=== PATIENT | female | born 1960 | race Caucasian/White ===

== ENCOUNTER 2017-02-23 18:34 | Emergency (ER) | payer OTHER ==
[2017-02-23] MEDS ORDERED: Bacitracin Oint 1 GM U/D Packet TOP ONE (20:31)
--- NOTE | 2017-02-23 20:34 | EDM.PDOC ---
ED HPI GENERAL MEDICAL PROBLEM - General Chief Complaint: Lower Extremity Injury/Pain Stated Complaint: PT FELL DOWNSTAIRS AT WORK Time Seen by Provider: 02/23/17 20:19 Source of Information: Reports: Patient History Limitations: Reports: No Limitations - History of Present Illness INITIAL COMMENTS - FREE TEXT/NARRATIVE: HISTORY AND PHYSICAL: History of present illness: Patient is a 56-year-old female who presents to the emergency room after a fall at 5:30 onto concrete floor. She states she tripped and fell landing on her left side states her face did hit the concrete. Denies any loss of consciousness. She states she has some "soreness" to her lower extremities from the knee down bilaterally. She was able to ambulate into the room without any difficulty. Patient does not take any anticoagulants either prescribed or [id number]. Denies any blurred vision, nausea, vomiting or paresthesias. Review of systems: As per history of present illness and below otherwise all systems reviewed and negative. Past medical history: As per history of present illness and as reviewed below otherwise noncontributory. Surgical history: As per history of present illness and as reviewed below otherwise noncontributory. Social history: No reported history of drug or alcohol abuse. Family history: As per history of present illness and as reviewed below otherwise noncontributory. Physical exam: HEENT: Atraumatic, normocephalic, pupils reactive, negative for conjunctival pallor or scleral icterus, mucous membranes moist, throat clear, neck supple, nontender, trachea midline. Lungs: Clear to auscultation, breath sounds equal bilaterally, chest nontender. Heart: S1S2, regular, negative for clicks, rubs, or JVD. Abdomen: Soft, nondistended, nontender. Negative for masses or hepatosplenomegaly. Negative for costovertebral tenderness. Pelvis: Stable nontender. Genitourinary: Deferred. Rectal: Deferred. Extremities: Atraumatic, negative for cords or calf pain. Neurovascular unremarkable. Neuro: Awake, alert, oriented. Cranial nerves II through XII unremarkable. Cerebellum unremarkable. Motor and sensory unremarkable throughout. Exam nonfocal. Physical examination patient states she is only concerned about the pain on the left side of her face. She declines any x-rays of her lower extremities. She is able to ambulate and has full range of motion. I did recommend she receive a Tdap today as she does have an open superficial abrasion to the right cruz. She declines a T-dap at this time. Diagnostics: CT head Therapeutics: Wound cleansing, bacitracin Impression: Head injury without loss of consciousness Abrasion Plan: 1. Please keep the abrasions clean and dry. Monitor for signs of infection. 2. Head injury instructions have been reviewed with you. If symptoms worsen or new symptoms develop please return to the emergency room as we discussed. 3. Follow-up with your primary care provider in the next 1-2 days. Return to the ED as needed and as discussed Definitive disposition and diagnosis as appropriate pending reevaluation and review of above. Duration: Hour(s): Location: Reports: Face head & lower legs Pain Score (Numeric/FACES): 5 - Related Data Allergies Allergy/AdvReac Type Severity Reaction Status Date / Time No Known Allergies Allergy Verified 02/23/17 19:09 Home Meds: Home Meds . 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: Musculoskeletal History: Reports: None Neurological History: Reports: None Psychiatric History: Reports: None Endocrine/Metabolic History: Reports: None Hematologic History: Reports: None Immunologic History: Reports: None Oncologic (Cancer) History: Reports: None Dermatologic History: Reports: None - Infectious Disease History Infectious Disease History: Reports: None - Past Surgical History Head Surgeries/Procedures: Reports: None GI Surgical History: Reports: Appendectomy Social & Family History - Family History Family Medical History: Noncontributory - Tobacco Use Smoking Status *Q: Current Every Day Smoker Years of Tobacco use: 40 Packs/Tins Daily: 0.3 - Caffeine Use Caffeine Use: Reports: Coffee, Soda - Recreational Drug Use Recreational Drug Use: No Review of Systems - Review of Systems Review Of Systems: ROS reveals no pertinent complaints other than HPI. ED EXAM, GENERAL - Physical Exam Exam: See Below (See dictation) Course - Vital Signs Last Recorded V/S: Last Vital Signs Temp 36.4 C 02/23/17 19:09 Pulse 92 02/23/17 19:09 Resp 18 11/06/17 19:09 BP 156/72 H 02/23/17 19:09 Pulse Ox 98 02/23/17 19:09 - Orders/Labs/Meds Orders: Active Orders 24 hr Category Date Time Status Communication Order [RC] STAT Care 02/23/17 20:30 Active Head wo Cont [CT] Stat Exams 02/23/17 20:31 Taken Meds: Medications Discontinued Medications Generic Name Dose Route Start Last Admin Trade Name Nneka PRN Reason Stop Dose Admin Bacitracin 1 dose 02/23/17 20:31 02/23/17 20:39 Bacitracin Oint 1 Gm TOP 02/23/17 20:32 1 dose ONETIME ONE Administration Departure - Departure Time of Disposition: 21:54 Disposition: Home, Self-Care 01 Clinical Impression: Abrasion Head injury, acute, without loss of consciousness Qualifiers: Encounter type: initial encounter Qualified Code(s): S09.90XA - Unspecified injury of head, initial encounter - Discharge Information Referrals: PCP,None [Primary Care Provider] - Forms: ED Department Discharge Additional Instructions: My general discharge The following information is given to patients seen in the emergency department who are being discharged to home. This information is to outline your options for follow-up care. We provide all patients seen in our emergency department with a follow-up referral. The need for follow-up, as well as the timing and circumstances, are variable depending upon the specifics of your emergency department visit. If you don't have a primary care physician on staff, we will provide you with a referral. We always advise you to contact your personal physician following an emergency department visit to inform them of the circumstance of the visit and for follow-up with them and/or the need for any referrals to a consulting specialist. The emergency department will also refer you to a specialist when appropriate. This referral assures that you have the opportunity for follow-up care with a specialist. All of these measure are taken in an effort to provide you with optimal care, which includes your follow-up. Under all circumstances we always encourage you to contact your private physician who remains a resource for coordinating your care. When calling for follow-up care, please make the office aware that this follow-up is from your recent emergency room visit. If for any reason you are refused follow-up, please contact the [facility] Emergency Department at and asked to speak to the emergency department charge nurse. [facility] [address] [place] [id number] 1. Please keep the abrasions clean and dry. Monitor for signs of infection. 2. Head injury instructions have been reviewed with you. He may use Tylenol and/ or ibuprofen as needed for pain management. If symptoms worsen or new symptoms develop please return to the emergency room as we discussed. 3. Follow-up with your primary care provider in the next 1-2 days. Return to the ED as needed and as discussed - My Orders Last 24 Hours: My Active Orders 02/23/17 20:30 Communication Order [RC] STAT 02/23/17 20:31 Head wo Cont [CT] Stat - Assessment/Plan Last 24 Hours: My Active Orders 02/23/17 20:30 Communication Order [RC] STAT 02/23/17 20:31 Head wo Cont [CT] Stat
--- NOTE | 2017-02-24 10:54 | CT ---
EXAM DATE: 02/23/17 PATIENT'S AGE: 56 Patient: MAURICIO ORNELAS Facility: [place], [place] Site . Site : 1960 Study: CT Head [id number] 9:39:08 PM Ordering Physician: Doctor Jara Final Report: INDICATION: Fell, hit left side of head. TECHNIQUE: CT Head without contrast. COMPARISON: None. FINDINGS: There is no mass effect or midline shift. No hydrocephalus. No CT evidence of acute hemorrhage or infarction. No abnormal extra-axial fluid collection. Bone windows show no acute or suspicious osseous abnormality. Visualized orbits and paranasal sinuses are unremarkable. IMPRESSION: No acute intracranial abnormality. Dictated by: Dez Melton MD @ 02/23/2017 22:04:08 (Electronic Signature) Report Signed by Proxy. [facility] HEALTH SYSTEMPaul
== END 2017-02-23 22:15 | disposition home or self-care (01) ==
LOC: MW.ED 18:34
DX: S09.90XA Unspecified injury of head, initial encounter (principal); S80.811A Abrasion, right lower leg, initial encounter; W19.XXXA Unspecified fall, initial encounter; F17.210 Nicotine dependence, cigarettes, uncomplicated
CPT/HCPCS: 70450; 70450-26; 99283; 99283-25

== ENCOUNTER 2021-03-17 09:22 | Emergency (ER) | payer OTHER ==
--- NOTE | 2021-03-17 09:51 | EDM.PDOC ---
ED HPI GENERAL MEDICAL PROBLEM - General Chief Complaint: Respiratory Problem Stated Complaint: SINUS,EARACHE Time Seen by Provider: 03/17/21 09:34 Source of Information: Reports: Patient History Limitations: Reports: No Limitations - History of Present Illness INITIAL COMMENTS - FREE TEXT/NARRATIVE: Patient is a 60-year-old female who presents today for sinus pain for the past few days. Says she came in today because now she is having pain in her left ear as well she had history of recurrent ear infections. She denies any nasal discharge no vision changes no headaches no fever chills difficulty breathing or other symptoms. Pain states she still has her normal hearing in the left ear. 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: Reports: Musculoskeletal History: Reports: None Neurological History: Reports: None Psychiatric History: Reports: None Endocrine/Metabolic History: Reports: None Hematologic History: Reports: None Immunologic History: Reports: None Oncologic (Cancer) History: Reports: None Dermatologic History: Reports: None - Infectious Disease History Infectious Disease History: Reports: None - Past Surgical History Head Surgeries/Procedures: Reports: None GI Surgical History: Reports: Appendectomy Other GI Surgeries/Procedures: bariatric sleeve done 11/2020 Social & Family History - Family History Family Medical History: No Pertinent Family History - Tobacco Use Tobacco Use Status *Q: Former Tobacco User Used Tobacco, but Quit: Yes Month/Year Tobacco Last Used: 06/2020 - Caffeine Use Caffeine Use: Reports: Coffee, Tea - Recreational Drug Use Recreational Drug Use: No ED ROS GENERAL - Review of Systems Review Of Systems: See Below Constitutional: Reports: No Symptoms HEENT: Reports: Ear Pain Respiratory: Reports: No Symptoms Cardiovascular: Reports: No Symptoms Endocrine: Reports: No Symptoms GI/Abdominal: Reports: No Symptoms : Reports: No Symptoms Musculoskeletal: Reports: No Symptoms Skin: Reports: No Symptoms Neurological: Reports: No Symptoms Psychiatric: Reports: No Symptoms Hematologic/Lymphatic: Reports: No Symptoms Immunologic: Reports: No Symptoms ED EXAM, GENERAL - Physical Exam Exam: See Below Exam Limited By: No Limitations General Appearance: Alert, WD/WN, No Apparent Distress Eye Exam: Bilateral Eye: EOMI, PERRL Ear Exam: Left Ear: TM Red, TM Bulging Nose: Normal Inspection Throat/Mouth: Normal Inspection Head: Atraumatic Neck: Normal Inspection Respiratory/Chest: No Respiratory Distress, Lungs Clear, Normal Breath Sounds Cardiovascular: Normal Peripheral Pulses, Regular Rate, Rhythm GI/Abdominal: Normal Bowel Sounds, Soft, Non-Tender Extremities: Normal Inspection Neurological: Alert, Oriented, Normal Cognition, Normal Gait Course - Vital Signs Last Recorded V/S: Last Vital Signs Temp 96.3 F L 03/17/21 09:32 Pulse 97 03/17/21 09:32 Resp 16 03/17/21 09:32 BP 140/72 03/17/21 09:42 Pulse Ox 98 03/17/21 09:32 Departure - Departure Time of Disposition: 09:50 Disposition: Home, Self-Care 01 Condition: Good Clinical Impression: Otitis media, Sinusitis - Discharge Information *PRESCRIPTION DRUG MONITORING PROGRAM REVIEWED*: Not Applicable *COPY OF PRESCRIPTION DRUG MONITORING REPORT IN PATIENT KACY: Not Applicable Instructions: Sinusitis, Adult, [id number], Sinusitis, Adult, Otitis Media, Adult Referrals: Yuli Pastor [Primary Care Provider] - Additional Instructions: You are seen today for sinus pain and ear pain. It looks to have an ear infection and we will send you home antibiotics. If your symptoms start to worsen or not better next 3 to 5 days please follow-up to primary care physician or return to the ED. The following information is given to patients seen in the emergency department who are being discharged to home. This information is to outline your options for follow-up care. We provide all patients seen in our emergency department with a follow-up referral. The need for follow-up, as well as the timing and circumstances, are variable depending upon the specifics of your emergency department visit. If you don't have a primary care physician on staff, we will provide you with a referral. We always advise you to contact your personal physician following an emergency department visit to inform them of the circumstance of the visit and for follow-up with them and/or the need for any referrals to a consulting specialist. The emergency department will also refer you to a specialist when appropriate. This referral assures that you have the opportunity for follow-up care with a specialist. All of these measure are taken in an effort to provide you with optimal care, which includes your follow-up. Under all circumstances we always encourage you to contact your private physician who remains a resource for coordinating your care. When calling for follow-up care, please make the office aware that this follow-up is from your recent emergency room visit. If for any reason you are refused follow-up, please contact the [facility] Emergency Department at and asked to speak to the emergency department charge nurse. Please follow up with your primary care physician. If you do not have a primary care physician, see below: [facility] [address] [place] [id number] [facility] [address] [place] [id number] Sepsis Event Note (ED) - Evaluation Sepsis Screening Result: No Definite Risk - Focused Exam Vital Signs: Vital Signs Temp Pulse Resp BP Pulse Ox 03/17/21 09:42 140/72 03/17/21 09:32 96.3 F L 97 16 98 - Assessment/Plan Plan: Patient is a 60-year-old female who presents today for sinus pain ear pain. On exam patient has some redness of her left TM likely infection patient will be started on antibiotics and will follow up with her PMD. Patient has no other complaints and vital signs are stable.
[2021-03-17] MEDS ORDERED: Amoxicillin/Clavulanate K 875-125 MG Tab PO ONE (10:01)
== END 2021-03-17 10:16 | disposition home or self-care (01) ==
LOC: MW.ED 09:22
DX: J32.9 Chronic sinusitis, unspecified (principal); H66.92 Otitis media, unspecified, left ear; Z87.891 Personal history of nicotine dependence
CPT/HCPCS: 99282; A9270

== ENCOUNTER 2021-06-01 23:12 | Emergency (ER) | payer OTHER ==
[2021-06-02 00:30] LABS: CORONAVIRUS COVID-19 NAA NEGATIVE (NEGATIVE); INFLUENZA A NAA NEGATIVE (NEGATIVE); INFLUENZA B NAA NEGATIVE (NEGATIVE)
== END 2021-06-02 00:58 | disposition home or self-care (01) ==
LOC: MW.ED 23:12
DX: J06.9 Acute upper respiratory infection, unspecified (principal); Z87.891 Personal history of nicotine dependence; Z20.822 Contact with and (suspected) exposure to COVID-19
CPT/HCPCS: 0240U; 87651; 99283; 99282

== ENCOUNTER 2021-06-03 15:40 | Emergency (ER) | payer OTHER ==
[2021-06-03] MEDS ORDERED: Sodium Chloride 0.9% 10 ML Syringe FLUSH PRN (17:57)
[2021-06-03] MEDS ORDERED: Sodium Chloride 0.9% 2.5 ML Syringe FLUSH PRN (17:57)
[2021-06-03] MEDS ORDERED: Sodium Chloride 0.9% 1,000 ML IV ONE (17:59)
[2021-06-03] MEDS ORDERED: Ondansetron 4 MG/2 ML SDV IVPUSH ONE (17:59)
[2021-06-03] MEDS ORDERED: Ketorolac 30 MG/ML SDV IVPUSH ONE (17:59)
[2021-06-03 19:18] LABS: CORONAVIRUS COVID-19 NAA POSITIVE (NEGATIVE); INFLUENZA A NAA NEGATIVE (NEGATIVE); INFLUENZA B NAA NEGATIVE (NEGATIVE)
[2021-06-03 19:22] LABS: BLOOD UREA NITROGEN,BUN 15 mg/dL (7.0-18.0); CARBON DIOXIDE,CO2 24.1 mmol/L (21.0-32.0); CHLORIDE,CL 94 mmol/L (98-107); GLUCOSE RANDOM 187 mg/dL (74-106); POTASSIUM,K 3.7 mmol/L (3.5-5.1); SODIUM,NA 133 mmol/L (136-145)
[2021-06-03] MEDS ORDERED: Acetaminophen 325 MG Tab PO ONE (19:51)
[2021-06-03] MEDS ORDERED: Nitrofurantoin Monohydrate/Macrocrystalline 100 MG Cap PO ONE (20:24)
== END 2021-06-03 20:50 | disposition home or self-care (01) ==
LOC: MW.ED 15:40
DX: U07.1 COVID-19 (principal); N30.90 Cystitis, unspecified without hematuria
CPT/HCPCS: 0240U; 36415; 71045; 80053; 81001; 83605; 83735; 84484; 85025; 85610; 87040; 93005; 96374; 96375; 99284; A9270; J1885; J2405; J7030; 93010; 99283